=== PATIENT | male | born 1930 | race Caucasian/White ===

== ENCOUNTER → 2016-05-03 | Outpatient (CLI) | payer OTHER ==
[~2016-05-03] MED LIST: ARICEPT10 MG PO; CELEXA 20MG TAB20 MG PO; COREG 3.125M3.125 MG PO; FISH OIL 1,0001 EACH PO; GLUCERNA237 ML PO; GLUCOTROL5 MG PO; LEVAQUIN500 MG PO; LISINOPRIL20 MG PO; NOVOLIN 70100 UNITS/ SC; PRAVACHOL80 MG PO
== END ==
DX: M48.06 Spinal stenosis, lumbar region (principal); E11.9 Type 2 diabetes mellitus without complications; I10 Essential (primary) hypertension; M19.90 Unspecified osteoarthritis, unspecified site; E04.1 Nontoxic single thyroid nodule; R80.9 Proteinuria, unspecified; G46.8 Other vascular syndromes of brain in cerebrovascular diseases; F06.30 Mood disorder due to known physiological condition, unspecified
CPT/HCPCS: 72148

== ENCOUNTER → 2016-07-30 | Outpatient (CLI) | payer OTHER | LOC: EMI 07:54 | DX: G30.9 Alzheimer's disease, unspecified (principal); F02.80 Dementia in other diseases classified elsewhere, unspecified severity, without behavioral disturbance, psychotic disturbance, mood disturbance, and anxiety; F01.50 Vascular dementia, unspecified severity, without behavioral disturbance, psychotic disturbance, mood disturbance, and anxiety; I67.82 Cerebral ischemia | CPT/HCPCS: 70551 ==

== ENCOUNTER 2016-08-01 13:59 | Inpatient (IN) | payer OTHER ==
[~2016-08-01] VITALS: Ht 172.7 cm; Wt 58.7 kg
[2016-08-01 16:14] LABS: HEMOGLOBIN 11.7 gm/dl (14.0-17.5); RED BLOOD COUNT 3.96 M/UL (4.20-5.50); WHITE BLOOD COUNT 7.8 K/UL (4.5-11.0)
[2016-08-01] MEDS ORDERED: CELEXA 20MG TAB20 MG PO (20:32)
[2016-08-01] MEDS ORDERED: LISINOPRIL20 MG PO (20:32)
[2016-08-01] MEDS ORDERED: ARICEPT10 MG PO (20:33)
[2016-08-01] MEDS ORDERED: PRAVACHOL80 MG PO (20:33)
[2016-08-01] MEDS ORDERED: GLUCOTROL5 MG PO (20:34)
[2016-08-01] MEDS ORDERED: COREG 3.125M3.125 MG PO (20:34)
[2016-08-01] MEDS ORDERED: NOVOLIN 70100 UNITS/ SC ×2 (20:35→20:36)
[2016-08-01] MEDS ORDERED: FISH OIL 1,0001 EACH PO (20:37)
[2016-08-02 06:18] LABS: HEMOGLOBIN 10.4 gm/dl (14.0-17.5); RED BLOOD COUNT 3.61 M/UL (4.20-5.50)
[2016-08-02 06:59] LABS: BUN/CREATININE RATIO 36 (0-10)
[2016-08-03 10:27] LABS: HEMOGLOBIN 11.1 gm/dl (14.0-17.5); RED BLOOD COUNT 3.75 M/UL (4.20-5.50); WHITE BLOOD COUNT 7.5 K/UL (4.5-11.0)
[2016-08-03 10:50] LABS: BUN/CREATININE RATIO 37 (0-10)
[2016-08-04 04:08] LABS: HEMOGLOBIN 9.7 gm/dl (14.0-17.5); RED BLOOD COUNT 3.37 M/UL (4.20-5.50); WHITE BLOOD COUNT 6.7 K/UL (4.5-11.0)
[2016-08-04 04:32] LABS: BUN/CREATININE RATIO 33 (0-10)
[2016-08-04 10:48] LABS: LDH, BODY FLUID 124 U/L; TOTAL PROTEIN, BODY FLUID 2.9 gm/dL
[2016-08-04 10:55] LABS: BODY FLUID SOURCE PLEURAL
[2016-08-05] MEDS ORDERED: GLUCERNA237 ML PO (11:28)
[2016-08-05] MEDS ORDERED: LEVAQUIN500 MG PO (11:32)
== END 2016-08-05 12:09 | disposition home or self-care (01) | DRG 193 ==
LOC: ER1 13:59 → ZEROF 18:43 → MED SURG 4 18:43
PROVIDERS: Internal Medicine Pulmonary Disease; Physician Assistant; ADMIT Emergency Medicine
PROC: 0W993ZX Drainage of Right Pleural Cavity, Percutaneous Approach, Diagnostic (ICD-10-PCS; principal; 2016-08-04)
DX: J18.9 Pneumonia, unspecified organism (principal); J96.01 Acute respiratory failure with hypoxia; J91.8 Pleural effusion in other conditions classified elsewhere; E44.0 Moderate protein-calorie malnutrition; Z68.1 Body mass index [BMI] 19.9 or less, adult; N17.9 Acute kidney failure, unspecified; E11.65 Type 2 diabetes mellitus with hyperglycemia; I10 Essential (primary) hypertension; E78.5 Hyperlipidemia, unspecified; F03.90 Unspecified dementia, unspecified severity, without behavioral disturbance, psychotic disturbance, mood disturbance, and anxiety; R91.1 Solitary pulmonary nodule; Z87.01 Personal history of pneumonia (recurrent); Z79.84 Long term (current) use of oral hypoglycemic drugs; Z79.4 Long term (current) use of insulin; Z79.899 Other long term (current) drug therapy; Z82.49 Family history of ischemic heart disease and other diseases of the circulatory system; Z80.9 Family history of malignant neoplasm, unspecified
CPT/HCPCS: ECHO; 36415; 36600; 71020; 71101; 71260; 80048; 80053; 82550; 82553; 82800; 82803; 82945; 82962; 83605; 83615; 83735; 83874; 83880; 83986; 84157; 84484; 85025; 85027; 86039; 86140; 86431; 87015; 87040; 87070; 87086; 87102; 87116; 87205; 89051; 92526; 92610; 93005; 93306; 94664; 99285; G0378; J1650; J1956; J7030; Q9962

== ENCOUNTER → 2016-08-16 | Outpatient (CLI) | payer OTHER | LOC: RAD 09:59 | DX: J90 Pleural effusion, not elsewhere classified (principal) | CPT/HCPCS: 71020 ==

== ENCOUNTER → 2016-08-23 | Outpatient (CLI) | payer OTHER | LOC: HEART 5 10:32 | DX: J90 Pleural effusion, not elsewhere classified (principal) | CPT/HCPCS: 94010 ==

== ENCOUNTER 2020-04-21 13:42 | Emergency (ER) | payer MEDICARE | END 2020-04-21 15:30 | disposition left against medical advice (07) | LOC: ER1 13:42 | DX: Z53.21 Procedure and treatment not carried out due to patient leaving prior to being seen by health care provider (principal) | CPT/HCPCS: 82962 ==